=== PATIENT | male | born 1965 | race Caucasian/White ===

== ENCOUNTER → 2024-02-27 08:31 | Outpatient (REF) | payer BC, SELFPAY | LOC: RCS 08:31 | PROVIDERS: ATTENDING PHYSICIAN Student in an Organized Health Care Education/Training Program; FAMILY PHYSICIAN Family Medicine | DX: I25.10 Atherosclerotic heart disease of native coronary artery without angina pectoris (principal) | CPT/HCPCS: 93017; 93350 ==

== ENCOUNTER 2024-04-11 05:39 | Emergency (ER) | payer BC, SELFPAY ==
[2024-04-11] VITALS (8 sets, daily range): BP systolic 117–143; BP diastolic 64–74; BMI 21.4
--- NOTE | 2024-04-11 05:58 | ED.GENMED ---
History of Present Illness
General
Chief Complaint: Chest Pain
Time Seen by Provider: 04/11/24 05:58
History of Present Illness
History of Present Illness:
TIME OF INITIAL ENCOUNTER: 6 AM
HPI: The patient presents with chest discomfort. He describes it as somewhat similar to when he had a heart attack 15 years ago but definitely not as severe. He does not describe it as a pressure or tightness. He had a normal stress 1 month ago.
He has not been sleeping well and has been waking up with nightmares recently but does not feel like he is under any significant stress or anxiety. He has had some paresthesias including the left side of his face but never had any motor deficits.
EXAM:
GENERAL: Well appearing in no distress
HEENT: Moist oral mucosa
CARDIOVASCULAR: No murmurs, normal heart rate, regular rhythm, No significant anterior chest wall tenderness
PULMONARY: No respiratory distress, breath sounds are clear and equal
ABDOMEN: Soft with no peritoneal signs, no tenderness
NEUROLOGIC: Excellent strength all extremities, no coordination deficits
PSYCHIATRIC: Appropriate mental status, normal insight and judgement
EXTREMITIES: Nontender, no edema, moves all extremities equally
SKIN: No rash, no lesions
NUMBER AND COMPLEXITY OF PROBLEMS ADDRESSED AT THE ENCOUNTER
� Chronic conditions affecting care: CAD, hyperlipidemia, had an GA in 2009, GERD, anxiety, Hodgkin's lymphoma
� Acute Exacerbation and/or Progression of Chronic Illness: This is an acute problem
� Differential Diagnosis includes: Chest wall pain, stress/anxiety, ACS
AMOUNT AND/OR COMPLEXITY OF DATA TO BE REVIEWED AND ANALYZED
� I performed an independent evaluation of and my interpretation is:
EKG: Sinus 75, nonspecific ST abnormality
CT:
X-rays: Chest x-ray clear
Laboratory Studies: Minimal leukocytosis with white count of 10.9, hemoglobin normal, chemistries unremarkable, initial troponin negative, BNP 109
Other:
� Review of other/old records: I reviewed records, the patient had a normal stress echo 02/27/2024 and there was no change comparison to 01/23/2023
� Clinical information was obtained by an independent historian: I spoke to at bedside
� Prescriptions/Medications Considered but not given:
� Further testing considered but not performed:
RISK OF COMPLICATIONS AND/OR MORBIDITY OR MORTALITY OF PATIENT MANAGEMENT
� Social determinants of health affecting care: Lives at home
� Discussion with other providers: Dr. France below
� Escalation of care including admission/observation vs risk of discharge considered: The patient arrives with about 18 hours worth of chest pain. He had some radiation toward the left jaw. The pain has been waxing and waning
since yesterday.
ANY OTHER UPDATES:
7 AM: Reassessed patient. Initial troponin negative. Appears very comfortable. No significant changes in clinical condition. Will repeat.
9:30 AM: Repeat troponin up to 0.017
12:05 PM: Third troponin less than 0.012, we did also give a dose of Pepcid. Possible GI etiology. Dr. Ford evaluated again in the [facility] and agrees with outpatient follow-up.
Past History
Past History
ED Past Medical History: CAD, Hypercholesterolemia, GA and Other (Patient has a history of anxiety)
ED Past Surgical History: None
Social History
Tobacco: Non-smoker
Alcohol: Occasional
Drug: None
Personal:
Living: with family
Employment: Employed
Family History
Family History: CAD; Negative Early CAD or Sudden
Phy Exam
Physical Exam
Physical Exam:
See HPI
Scores
Heart Score for Chest Pain Patients
STEMI patient?: Not applicable
Course
Orders/Labs/Results
Orders:
Orders
04/11/24 05:42
Electrocardiogram (*1) Urgent
Reason for Study: Other
Other Reason for Exam: Respiratory Distress
Cardiac Monitoring- Treatment ONCE
EKG- Treatment ONCE
IV Insert/Care/Rem.- Treatment PRN
CR Chest - 2 Views Urgent
Comment:
Reason For Exam: respiratory distress
O2 Therapy [RESP] Urgent
Titrate/Wean O2 to maintain O2 sat greater than (%): 93
Special Instructions: TO MAINTAIN CONTINUOUS O2 SATS >/= 93%
Pulse Ox/cont/shift [RESP] Urgent
Quantity: 1
Special Instructions: continuous pulse ox
04/11/24 06:02
Complete Blood Count/With Diff Urgent
Comprehensive Metabolic Panel Urgent
NT-proBNP Urgent
Troponin I Urgent
04/11/24 06:36
EKG- Treatment ONCE
04/11/24 08:19
Troponin I Urgent
04/11/24 08:30
Electrocardiogram (*1) Urgent
Reason for Study: Chest Pain
04/11/24 09:17
EKG- Treatment ONCE
04/11/24 10:24
Troponin I Urgent
04/11/24 10:30
Electrocardiogram (*1) Urgent
Reason for Study: Chest Pain
04/11/24 11:19
Famotidine [Pepcid] 20 mg IV NOW STA
Abnormal Lab Results
04/11/24
06:02
WBC 10.9 H 10^3/uL
(4.8-10.8)
MCH 31.1 H pg
(27.0-31.0)
Plt Count 115 L 10^3/uL
(130-400)
MPV 11.4 H fL
(7.4-10.4)
Absolute Lymphs (auto) 6.1 H 10^3/uL
(1.2-3.4)
Neutrophils % 38.0 L %
(42.2-75.2)
Lymphocytes % 56.3 H %
(20.5-51.1)
04/11/24 06:02
04/11/24 06:02
Vital Signs
Initial and Last Documented VS:
Initial Vital Signs
Pulse Resp BP Pulse Ox
63 20 143/74 99
04/11/24 05:44 04/11/24 05:44 04/11/24 05:44 04/11/24 05:44
Last Documented Vital Signs
Temp Pulse Resp BP Pulse Ox
36.6 C 70 16 118/68 100
04/11/24 05:48 04/11/24 10:02 04/11/24 10:02 04/11/24 09:00 04/11/24 09:00
*Critical Care Note
Total Time (30-74mins, 75-104mins- exclusive of procedures): Not Applicable
ED Attending Note
-
Portions of this chart may have been created with voice recognition software.� Occasional wrong word or��sound alike� substitutions may have occurred due to the inherent limitations of voice recognition software.
Discharge Plan
Departure
Patient Disposition: Home (Routine Discharge)
Date of Disposition: 04/11/24
Time of Disposition: 12:05
Patient with high blood pressure during this ER visit?: Yes
Discharge Problem:
Chest pain
Instructions: Chest Pain CBC Follow Up
Prescriptions:
No Action
atorvastatin 20 MG tablet
20 mg PO QPM
aspirin 325 MG tablet
325 mg PO DAILY
metoprolol tartrate 25 MG tablet
12.5 mg PO DAILY
multivitamin with folic acid [Tab-A-Temo] 1 TABLET tablet
1 tab PO DAILY
niacin 250 MG tablet extended release
1,000 mg PO HS
docosahexaenoic acid-epa 1 CAP capsule
1 cap PO DAILY
prednisone 10 MG tablet
10 mg PO .TAPER Qty: 30 0RF
Rx Instructions:
Take 50mg daily x2days, 40mg daily x2days, 30mg daily x2days, 20mg daily x2days, 10mg daily x2days
hydrocodone-acetaminophen 1 TABLET tablet
1 tab PO Q4HPRN PRN (Reason: pain) Qty: 15 0RF
Referrals:
Rip Mccord MD [Family Provider] -
Activity Restrictions/Additional Instructions:
Consider taking Pepcid for immediate relief of what could be GI related discomfort and I would recommend taking a 2-week course of [id number] omeprazole. You were also seen in the emergency department by the epitaxial reactor technician, Dr. Ford. Return if
you have symptoms that worsen with exertion. Also, call their office for follow-up as well
Interventions
Interventions:
*Risk Screen - Suicide Last Done: 04/11/24 05:44
*General Assessment Last Done: 04/11/24 05:44
*Neglect/Abuse Screening Last Done: 04/11/24 05:44
ED- Fall Risk Assessment Last Done: 04/11/24 05:44
*ED COVID-19 Vaccine History Last Done: 04/11/24 05:44
ED- Cardiac Assessment Last Done: 04/11/24 05:55
Discharge Date and Time
Print Language: SAO TOMEAN
[2024-04-11 06:25] LABS: Hematocrit 47.6 % (39.0-52.0); Mean Corp Hgb Conc. 33.6 g/dL (33.0-37.0); Mean Corpuscular Hgb 31.1 pg (27.0-31.0); Mean Corpuscular Volume 92.4 fL (80.0-94.0); Mean Platelet Volume 11.4 fL (7.4-10.4); Platelet Count 115 10^3/uL (130-400); Red Blood Cell Count 5.15 10^6/uL (4.70-6.10); Red Cell Dist. Width 12.4 % (11.5-14.5); White Blood Cell Count 10.9 10^3/uL (4.8-10.8)
[2024-04-11 06:27] LABS: ALT (SGPT) 41 U/L (0-50); AST (SGOT) 48 U/L (17-59); Albumin 4.3 g/dl (3.5-5.0); Alkaline Phosphatase 60 U/L (38-126); Blood Urea Nitrogen 19 mg/dl (9-20); Carbon Dioxide 27 mmol/L (22-30); Chloride 103 mmol/L (98-107); Estimated Creatinine Clearance 87 ml/min; Glucose 91 mg/dl (70-99); Potassium 3.7 mmol/L (3.5-5.1); Sodium 140 mmol/L (135-145); Total Bilirubin 0.9 mg/dl (0.2-1.3); Total Protein 6.9 g/dl (6.3-8.2); eGFR > 60.00
[2024-04-11 06:34] LABS: NT-proBNP 109 pg/ml; Troponin I < 0.012 ng/ml
[2024-04-11 08:51] LABS: % Basophils 0.4 % (0-2); % Eosinophils 0.6 % (0-6); % Immature Granulocytes 0.3 % (0-0.5); % Lymphocytes 56.3 % (20.5-51.1); % Monocytes 4.4 % (1.7-9.3); Absolute Eosinophils 0.1 10^3/uL (0-0.7); Absolute Lymphocytes 6.1 10^3/uL (1.2-3.4); Absolute Monocytes 0.5 10^3/uL (0.1-0.6); Absolute Neutrophils 4.1 10^3/uL (1.4-6.5); Nucleated Red Blood Cells % 0.3 % (-)
[2024-04-11 08:55] LABS: Troponin I 0.017 ng/ml
[2024-04-11 10:59] LABS: Troponin I < 0.012 ng/ml
--- NOTE | 2024-04-11 11:20 | CON.CAR ---
Addendum entered and electronically signed by Joseph Ford MD 04/11/24 12:23:
58 yo male with CAD, prior stenting 2009, dyslipidemia presents to ED with chest pain. Relatively constant since yesterday, and non-exertional. Exam with RRR, no murmurs, no edema. EKG: NSR, nl EKG (at time of pain). TnI normal x3.
Suspect non-cardiac chest pain. I asked him to return to ED if chest pain becomes more typical for angina, especially if becomes exertional.
Original Note:
Consultation
Consultation Request
Date/Time Consultation Requested: 04/11/2024 09:15
Date/Time Consultation Performed: 04/11/2024 10:00
Requesting Provider: Dr. Dasilva
Performing Provider: ILEANA Kaba for Dr. Ford
Reason for Consultation: Chest discomfort
Medical History
-
Chief Complaint: Chest discomfort
History of Present Illness:
Larry Gonsalves is a 58-year-old male (known to Dr. Anderson, his primary plate conditioner), with coronary artery disease (PCI LAD, LCx, RCA 2009), dyslipidemia, hypertension, and Hodgkin's disease status post chemotherapy without XRT presented to the
emergency department with a chief complaint of chest discomfort. Yesterday, he woke in his usual state of health. He went on a walk for his does not. He cut the walk short for feeling 'off' and reporting some intermittent nausea. Last night
he was having paroxysms of chest pressure. No made it better or worse. He reports it was poor judgment but he thought that maybe if he went to sleep he would feel better. He woke up at about 4:30 AM which has been usual for him more recently and
had chest pressure. He is not sure whether or not he had discomfort all night. He decided to present to the emergency room when he had left-sided jaw pain. He also felt numbness and tingling in his lower lip. At the time of this consultation he
is endorsing chest pressure of 2/10 in severity. It is not radiating. It has no other associated symptoms. Nothing is making the pain better or worse. It has been ongoing for several hours now.
Past Medical History
Past Medical History: CAD, Cancer (Hodgkin's lymphoma) and Hypercholesterolemia
Social History
Tobacco: Non-Smoker
Alcohol: Occasional (Social)
Drug: None
Personal:
Living: With Family
Family History
Family History: Reviewed & Not Pertinent
Allergies / Home Medications
Allergy/AdvReac Type Severity Reaction Status Date / Time
Penicillins Allergy Hives Verified 04/11/24 05:43
procaine HCl [From Novocain] Allergy rapid and Verified 04/11/24 05:43
pounding
heart rate
�Medication �Instructions �Recorded �Confirmed �Type
aspirin 325 mg tablet 325 mg PO DAILY 12/20/09 11/06/12 History
atorvastatin 20 mg tablet 20 mg PO QPM 12/20/09 07/28/10 History
metoprolol tartrate 25 mg tablet 12.5 mg PO DAILY 12/20/09 07/28/10 History
multivitamin with folic acid 400 1 tab PO DAILY 12/20/09 07/28/10 History
mcg tablet (Tab-A-Temo)
docosahexaenoic acid (dha)-epa 120 1 cap PO DAILY 03/15/10 07/28/10 History
mg-180 mg capsule
niacin 250 mg tablet,extended 1,000 mg PO HS 03/15/10 07/28/10 History
release
hydrocodone 5 mg-acetaminophen 325 1 tab PO Q4HPRN PRN pain #15 tabs 05/21/14 Rx
mg tablet
prednisone 10 mg tablet 10 mg PO .TAPER #30 tabs 05/21/14 Rx
Review of Systems
-
History Source: Patient
All other systems: Negative unless noted
Constitutional: Fatigue
EENT: No Symptoms
Respiratory: No Symptoms
Cardiac: Chest Pain
Abdomen/GI: No Symptoms
: No Symptoms
Musculoskeletal: No Symptoms
Skin: No Symptoms
Neurological: No Symptoms
Endocrine: No Symptoms
Hematologic/Lymphatic: No Symptoms
Physical Exam
Vital Signs
Temp Pulse Resp BP Pulse Ox
97.9 F 70 16 118/68 100
04/11/24 05:48 04/11/24 10:02 04/11/24 10:02 04/11/24 09:00 04/11/24 09:00
Lab Results
04/11/24 06:02
04/11/24 06:02
Troponin I < 0.012 ng/ml D 04/11/24 10:24
Nye-A-Nulfmkwsake Pept 109 pg/ml 04/11/24 06:02
Physical Exam
General: Well Developed, Well Nourished, No Apparent Distress and Comfortable
HEENT: Normocephalic
Respiratory: Clear and Non Labored Respirations
Cardiac: S1/S2 and Regular Rhythm; Negative Peripheral Edema
Breast: Deferred by me
GI: Soft, Non Tender, Non Distended and Normal Bowel Sounds
Rectal: Deferred by Provider
Genito-urinary: No Costovertebral Tender
Musculoskeletal: No Clubbing and No Cyanosis
Skin: Warm and Dry
Neuro: AO x 3
Hematologic/Lymphatic: No Lymphadenopathy
Psych: Calm
Impression / Plan
-
IMPRESSION/PLAN: 58M with coronary artery disease (PCI LAD, LCx, RCA 2009), dyslipidemia, hypertension, and Hodgkin's disease status post chemotherapy without XRT presented to the emergency department with a chief complaint of chest discomfort.
Primary plate conditioner: Dr. Anderson
Chest pressure
-Intermittent chest pressure, endorses some nausea and feeling off yesterday while on a walk with his
-Initial troponin <0.012, follow troponin 0.017, await next troponin
-He has had hours of pain with 2 stable troponins which lean towards noncardiac chest discomfort
-CXR did not show acute cardiopulmonary process
-Had 'fleeting' jaw pain at home, none current
-Prior PCI symptomatology was crushing chest pain in the middle of the night, he ran several miles that day without any symptoms
-He reports this is not as severe as 2009
-Last month he completed a stress echocardiogram, normal augmentation with 19 METS (year prior was also 19 METS)
Dyslipidemia, on rosuvastatin 20mg, Repatha, and Lovaza 1G - managed by Dr. Mann at [facility]
Hodgkin's lymphoma, treated with chemotherapy, no XRT, (Dr. Hameed at [place], 2013)
[2024-04-11] MEDS: PEPCID 20 MG IV (11:37)
== END 2024-04-11 12:14 | disposition home or self-care (01) ==
LOC: EMR 05:39
PROVIDERS: Emergency Medicine; EMERGENCY PHYSICIAN Emergency Medicine; FAMILY PHYSICIAN Family Medicine
DX: R07.89 Other chest pain (principal); I25.10 Atherosclerotic heart disease of native coronary artery without angina pectoris; E78.00 Pure hypercholesterolemia, unspecified; I25.2 Old myocardial infarction; I10 Essential (primary) hypertension; Z82.49 Family history of ischemic heart disease and other diseases of the circulatory system; Z92.21 Personal history of antineoplastic chemotherapy; Z95.5 Presence of coronary angioplasty implant and graft; C81.90 Hodgkin lymphoma, unspecified, unspecified site
CPT/HCPCS: 99283; 96374; 71046; 80053; 83880; 84484; 85025; 93005

== ENCOUNTER → 2024-08-18 08:29 | Outpatient (REF) | payer BC, SELFPAY | LOC: RCS 08:29 | PROVIDERS: ATTENDING PHYSICIAN Student in an Organized Health Care Education/Training Program; FAMILY PHYSICIAN Family Medicine | DX: R00.2 Palpitations (principal) | CPT/HCPCS: 93225; 93226 ==

== ENCOUNTER → 2024-10-05 14:37 | Outpatient (REF) | payer BC, SELFPAY | LOC: HWRAD 14:37 | PROVIDERS: ATTENDING PHYSICIAN Urology; FAMILY PHYSICIAN Family Medicine | DX: N50.89 Other specified disorders of the male genital organs (principal) | CPT/HCPCS: 76870; 93976 ==

== ENCOUNTER → 2024-12-03 18:48 | Outpatient (REF) | payer BC, SELFPAY | LOC: MRI 3T 18:48 | PROVIDERS: ATTENDING PHYSICIAN Urology; FAMILY PHYSICIAN Family Medicine | DX: N40.1 Benign prostatic hyperplasia with lower urinary tract symptoms (principal); R31.0 Gross hematuria | CPT/HCPCS: 74183; A9575 ==

== ENCOUNTER → 2024-12-04 13:04 | Outpatient (REF) | payer BC, SELFPAY | LOC: MRI 3T 13:04 | PROVIDERS: ATTENDING PHYSICIAN Urology; FAMILY PHYSICIAN Family Medicine | DX: N40.1 Benign prostatic hyperplasia with lower urinary tract symptoms (principal); R31.0 Gross hematuria | CPT/HCPCS: 72197 ==

== ENCOUNTER → 2025-01-12 09:50 | Outpatient (REF) | payer BC, SELFPAY | LOC: RCS 09:50 | PROVIDERS: ATTENDING PHYSICIAN Student in an Organized Health Care Education/Training Program; FAMILY PHYSICIAN Family Medicine | DX: I25.10 Atherosclerotic heart disease of native coronary artery without angina pectoris (principal) | CPT/HCPCS: 93017; 93350 ==